=== PATIENT | male | born 1970 | race Caucasian/White ===

== ENCOUNTER 2019-01-19 19:57 | Outpatient (CLI) | payer OTHER | END 2019-01-19 19:58 | disposition critical access hospital (66) | LOC: EMS 19:57 | PROVIDERS: ATTEND Surgery | DX: R07.9 Chest pain, unspecified (principal) | CPT/HCPCS: A0425; A0427 ==

== ENCOUNTER 2019-01-19 20:11 | Emergency (ER) | payer OTHER ==
--- NOTE | 2019-01-19 20:24 | ED Physician Documentation ---
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 Pain is pleuritic, worse with movement LUE, worse with palpation. Given NTG x 3 en route with improvement in pain from 09/28-07/29. also given asa 81mgx4. denies h/o similar symptoms. Flew from [place] few days ago. Review of Systems Constitutional: reports: Fever (not aware of fevers, although medics report they measured 100.4 temp in field). denies: Chills, Sweats Cardiac: reports: Chest pain / pressure. denies: Palpitations, Pedal edema, Calf pain Respiratory: reports: Reviewed and negative GI: reports: Reviewed and negative Skin: reports: Reviewed and negative Musculoskeletal: reports: Joint pain (left shoulder) Neurologic: reports: Headache (subsequent to NTG). denies: Generalized weakness, Focal weakness, Numbness PD PAST MEDICAL HISTORY - Past Medical History Past Medical History: Yes Cardiovascular: Hypertension - Past Surgical History Past Surgical History: Yes General: Other (umbilical hernia) - Allergies Allergies/Adverse Reactions: Allergies Allergy/AdvReac Type Severity Reaction Status Date / Time acetaminophen [From Vicodin] Allergy Unknown Verified 01/19/19 20:19 hydrocodone [From Vicodin] Allergy Unknown Verified 01/19/19 20:19 - Living Situation Living Situation: reports: With family Living Arrangement: reports: At home PD ED PE NORMAL - Vitals Vital signs reviewed: Yes - General General: Alert and oriented X 3, No acute distress, Well developed/nourished - HEENT HEENT: Moist mucous membranes - Neck Neck: Supple, no meningeal sign - Cardiac Cardiac: No murmur, No gallop, No rub - Respiratory Respiratory: No respiratory distress, Clear bilaterally - Abdomen Abdomen: Soft, Non tender - Derm Derm: Normal color, Warm and dry, No rash - Extremities Extremities: No edema - Neuro Neuro: Alert and oriented X 3 PD ED PE EXPANDED - Cardiac Cardiac: Tachy, Regular Rhythm Results - Vitals Vitals: Vital Signs - 24 hr 01/19/19 01/19/19 01/19/19 20:12 20:30 21:00 Temperature 37.1 C Heart Rate 124 H 114 H 110 H Respiratory 24 19 19 Rate Blood Pressure 123/76 121/86 H 136/83 H O2 Saturation 93 95 96 01/19/19 01/19/19 01/19/19 21:30 22:00 22:30 Temperature Heart Rate 111 H 105 H 103 H Respiratory 17 14 19 Rate Blood Pressure 136/84 H 133/82 H 134/78 H O2 Saturation 99 97 99 01/19/19 01/19/19 01/20/19 23:00 23:30 00:04 Temperature Heart Rate 104 H 99 88 Respiratory 18 15 18 Rate Blood Pressure 134/86 H 147/83 H 164/85 H O2 Saturation 96 97 94 01/20/19 01/20/19 00:34 00:57 Temperature Heart Rate 85 86 Respiratory 18 17 Rate Blood Pressure 124/77 124/77 O2 Saturation 93 97 Oxygen O2 Source Room air - EKG (time done) No standard instances Rate: Rate (enter#) (118) Rhythm: Sinus tachycardia [place]: LAD Intervals: Normal [place] QRS: Normal Ischemia: Normal ST segments, Q waves (III, aVF) - Labs Labs: Laboratory Tests 01/19/19 01/19/19 01/19/19 20:25 20:25 20:25 WBC 7.8 RBC 4.46 L Hgb 14.0 Hct 41.2 L MCV 92.4 MCH 31.4 H MCHC 34.0 RDW 13.6 Plt Count 232 MPV 10.2 Neut # (Auto) 3.9 Lymph # (Auto) 3.0 [place] # (Auto) 0.7 Eos # (Auto) 0.2 Baso # (Auto) 0.0 Absolute Nucleated RBC 0.00 Nucleated RBC % 0.0 Sodium 137 Potassium 3.5 Chloride 100 L Carbon Dioxide 27 Anion Gap 10.0 BUN 15 Creatinine 1.4 H Estimated GFR (MDRD) 54 L Glucose 169 H Calcium 8.9 Total Bilirubin 0.5 AST 35 ALT 30 Alkaline Phosphatase 57 Troponin I High Sens 3.5 Total Protein 7.4 Albumin 4.4 Globulin 3.0 Albumin/Globulin Ratio 1.5 Lipase 27 01/19/19 23:30 WBC RBC Hgb Hct MCV MCH MCHC RDW Plt Count MPV Neut # (Auto) Lymph # (Auto) [place] # (Auto) Eos # (Auto) Baso # (Auto) Absolute Nucleated RBC Nucleated RBC % Sodium Potassium Chloride Carbon Dioxide Anion Gap BUN Creatinine Estimated GFR (MDRD) Glucose Calcium Total Bilirubin AST ALT Alkaline Phosphatase Troponin I High Sens 7.9 Total Protein Albumin Globulin Albumin/Globulin Ratio Lipase - Rads (name of study) CT chest w/ contrast Radiology: Prelim report reviewed, See rad report PD MEDICAL DECISION MAKING - ED course Complexity details: reviewed results, re-evaluated patient, considered differential, d/w patient, d/w family Departure - Departure Disposition: 01 Home, Self Care Clinical Impression: Chest pain Condition: Good Instructions: ED Chest Pain Atypical Unkn Cause Discharge Date/Time: 01/20/19 01:07
[2019-01-19] MEDS ORDERED: MORPHINE 2 MG/ML CARPUJECT IVP STA (20:30)
[2019-01-19 20:42] LABS: BASOPHILS % (AUTO) 0.5 %; EOSINOPHILS # (AUTO) 0.2 10^3/uL (0.0-0.7); EOSINOPHILS % (AUTO) 2.2 %; LYMPHOCYTES % (AUTO) 38.2 %; MEAN CORPUSCULAR HEMOGLOBIN 31.4 pg (27.0-31.0); MEAN CORPUSCULAR VOLUME 92.4 fL (80.0-94.0); MEAN PLATELET VOLUME 10.2 fL (7.4-11.4); MONOCYTES # (AUTO) 0.7 10^3/uL (0.0-1.0); MONOCYTES % (AUTO) 8.8 %; NEUTROPHILS # (AUTO) 3.9 10^3/uL (1.5-6.6); PLT - PLATELET COUNT 232 10^3/uL (130-450); RED BLOOD COUNT 4.46 10^6/uL (4.70-6.10); RED CELL DISTRIBUTION WIDTH 13.6 % (12.0-15.0); WHITE BLOOD COUNT 7.8 x10^3/uL (4.8-10.8)
[2019-01-19] MEDS ORDERED: IOVERSOL 320 100 ML VIAL IVP ONE ×2 (20:46→21:19)
[2019-01-19 20:57] LABS: ALBUMIN 4.4 g/dL (3.2-5.5); ALBUMIN/GLOBULIN RATIO 1.5 (1.0-2.2); BILIRUBIN,TOTAL 0.5 mg/dL (0.2-1.0); CALCIUM 8.9 mg/dL (8.5-10.3); CREATININE 1.4 mg/dL (0.6-1.2); TOTAL PROTEIN 7.4 g/dL (6.7-8.2)
--- NOTE | 2019-01-19 21:49 | CT Report ---
Reason: left pleuritic chest pain, tachycardia Procedure Date: 01/19/2019 Accession Number: [id number] / [id number] Procedure: CT - ANGIO CHEST W/WO CPT Code: Final Report FULL RESULT: EXAM: CT ANGIOGRAM CHEST EXAM DATE: 01/19/2019 09:17 PM. CLINICAL HISTORY: Left pleuritic chest pain, tachycardia. COMPARISON: None. TECHNIQUE: Routine helical imaging was performed through the chest in the pulmonary arterial phase. IV Contrast: OPTI 320 80ML. Reconstructions: Coronal 3-D MIP reconstructions.Sagittal and coronal. In accordance with CT protocol optimization, one or more of the following dose reduction techniques were utilized for this exam: automated exposure control, adjustment of mA and/or KV based on patient size, or use of iterative reconstructive technique. FINDINGS: Pulmonary Arteries: Diagnostic quality: Significantly limited due to respiratory motion artifact and late contrast bolus timing. No pulmonary emboli identified through the lobar/proximal segmental level. RV/LV is within normal limits. There is no interventricular septal bowing. There is no reflux of contrast material in the IVC. Lungs/Pleura: Poor inspiratory effort. Elevation and eventration of the right hemidiaphragm. No consolidation, pleural effusion or pneumothorax. Mild dependent atelectasis. Mediastinum: The heart is normal in size. No lymphadenopathy. Thoracic Aorta: Unremarkable. Upper Abdomen: Unremarkable. Other: None. IMPRESSION: No central pulmonary emboli. Limited exam. RADIA
[2019-01-20 00:35] VITALS: BP 124/77
== END 2019-01-20 01:07 | disposition home or self-care (01) ==
LOC: ED 20:11
DX: R07.81 Pleurodynia (principal); M25.512 Pain in left shoulder; R00.0 Tachycardia, unspecified; I10 Essential (primary) hypertension
CPT/HCPCS: 36415; 71275; 80053; 83690; 84484; 85025; 93005; 96374; 99284; Q9967

== ENCOUNTER 2019-01-20 11:22 | Emergency (ER) | payer OTHER ==
[2019-01-20 11:58] LABS: BASOPHILS % (AUTO) 0.2 %; EOSINOPHILS % (AUTO) 0.2 %; HGB - HEMOGLOBIN 14.5 g/dL (14.0-18.0); LYMPHOCYTES # (AUTO) 1.3 10^3/uL (1.5-3.5); LYMPHOCYTES % (AUTO) 16.5 %; MEAN CORPUSCULAR HEMOGLOBIN 31.5 pg (27.0-31.0); MEAN CORPUSCULAR HGB CONC 34.2 g/dL (32.0-36.0); MEAN PLATELET VOLUME 9.8 fL (7.4-11.4); MONOCYTES # (AUTO) 0.5 10^3/uL (0.0-1.0); MONOCYTES % (AUTO) 6.3 %; NEUTROPHILS # (AUTO) 6.2 10^3/uL (1.5-6.6); NEUTROPHILS % (AUTO) 76.6 %; PLT - PLATELET COUNT 223 10^3/uL (130-450); RED BLOOD COUNT 4.61 10^6/uL (4.70-6.10); RED CELL DISTRIBUTION WIDTH 13.7 % (12.0-15.0); WHITE BLOOD COUNT 8.1 x10^3/uL (4.8-10.8)
[2019-01-20 12:17] LABS: ALBUMIN 4.3 g/dL (3.2-5.5); ALBUMIN/GLOBULIN RATIO 1.3 (1.0-2.2); BILIRUBIN,TOTAL 0.8 mg/dL (0.2-1.0); CALCIUM 9.2 mg/dL (8.5-10.3); CREATININE 1.1 mg/dL (0.6-1.2); TOTAL PROTEIN 7.6 g/dL (6.7-8.2)
--- NOTE | 2019-01-20 12:24 | XRAY Report ---
Reason: Chest Pain Procedure Date: 01/20/2019 Accession Number: [id number] / [id number] Procedure: XR - Chest 1 View X-Ray CPT Code: 99924 Final Report FULL RESULT: EXAM: CHEST RADIOGRAPHY EXAM DATE: 01/20/2019 12:01 PM. CLINICAL HISTORY: Chest Pain. COMPARISON: None. TECHNIQUE: 1 view. FINDINGS: Lungs/Pleura: No focal consolidation evident. No pleural effusion. No pneumothorax. Bilateral peribronchial thickening. Mediastinum: Within exam limitations, the cardiomediastinal contour is normal. Other: None. IMPRESSION: Bilateral central airway thickening can be seen in the setting of bronchitis, acute or chronic. Reactive airways disease can have this appearance as well. No focal lung parenchymal consolidation is seen to suggest superimposed pneumonia. RADIA
--- NOTE | 2019-01-20 12:42 | ED Physician Documentation ---
History of Present Illness - Stated complaint Stated Complaint: cp, back pain, headache - Chief complaint Chief Complaint: Cardiac - History obtained from History obtained from: Patient, Family - History of Present Illness Timing: Yesterday Pain level max: 5 Pain level now: 4 - Additonal information Additional information: 48-year-old male complains of a burning sensation to the left chest that wraps around the chest and to the back. Worse with palpation and movement. Nothing makes it better. No fevers. No nausea or vomiting. No history of cardiac issues. Negative troponin here last night. Review of Systems Constitutional: denies: Fever, Chills Nose: denies: Rhinorrhea / runny nose, Congestion Respiratory: denies: Dyspnea, Cough, Wheezing GI: denies: Vomiting PD PAST MEDICAL HISTORY - Past Medical History Past Medical History: Yes Cardiovascular: Hypertension - Past Surgical History Past Surgical History: Yes General: Other - Present Medications Home Medications: Ambulatory Orders Medication Instructions Recorded Confirmed Valacyclovir HCl [Valacyclovir] 1,000 mg PO TID #21 tablet 01/20/19 predniSONE [Prednisone] 40 mg PO DAILY #14 tablet 01/20/19 - Allergies Allergies/Adverse Reactions: Allergies Allergy/AdvReac Type Severity Reaction Status Date / Time acetaminophen [From Vicodin] Allergy Unknown Verified 01/20/19 11:34 hydrocodone [From Vicodin] Allergy Unknown Verified 01/20/19 11:34 - Social History Does the pt smoke?: No Smoking Status: Never smoker Does the pt drink ETOH?: Yes Does the pt have substance abuse?: No - Immunizations Immunizations are current?: Yes - POLST Patient has POLST: No PD ED PE NORMAL - Vitals Vital signs reviewed: Yes - General General: Alert and oriented X 3, No acute distress - HEENT HEENT: Moist mucous membranes - Neck Neck: Supple, no meningeal sign - Cardiac Cardiac: RRR, No murmur, Strong equal pulses - Respiratory Respiratory: No respiratory distress, Clear bilaterally - Abdomen Abdomen: Soft, Non tender, Non distended - Derm Derm: Warm and dry, No rash, Other (Tenderness to light touch around the dermatome of approximately T6. Wraps around the chest. No tenderness elsewhere. No visible rash) - Extremities Extremities: No edema, No calf tenderness / cord - Neuro Neuro: Alert and oriented X 3 Results - Vitals Vitals: Oxygen O2 Source Room air - EKG (time done) 1128 Rate: Rate (enter#) (91) Rhythm: NSR [place]: Normal Intervals: Normal [place] QRS: Normal Ischemia: Normal ST segments, Q waves Compare to prior EKG: Unchanged from prior EKG - Labs Labs: Laboratory Tests 01/20/19 01/20/19 01/20/19 11:55 11:55 11:55 WBC 8.1 RBC 4.61 L Hgb 14.5 Hct 42.4 MCV 92.0 MCH 31.5 H MCHC 34.2 RDW 13.7 Plt Count 223 MPV 9.8 Neut # (Auto) 6.2 Lymph # (Auto) 1.3 L [place] # (Auto) 0.5 Eos # (Auto) 0.0 Baso # (Auto) 0.0 Absolute Nucleated RBC 0.00 Nucleated RBC % 0.0 Sodium 139 Potassium 3.9 Chloride 104 Carbon Dioxide 28 Anion Gap 7.0 BUN 12 Creatinine 1.1 Estimated GFR (MDRD) 71 L Glucose 150 H Calcium 9.2 Total Bilirubin 0.8 AST 31 ALT 31 Alkaline Phosphatase 54 Troponin I High Sens 4.0 Total Protein 7.6 Albumin 4.3 Globulin 3.3 Albumin/Globulin Ratio 1.3 Lipase 30 - Rads (name of study) cxr Radiology: Prelim report reviewed, EMP read contemporaneously, See rad report (Bilateral central airway thickening can be seen in setting of bronchitis, greater chronic. Reactive airway disease can have this appearance as well. No focal lung parenchymal consolidation is seen to suggest a pneumonia) PD MEDICAL DECISION MAKING - ED course Complexity details: reviewed old records, reviewed results, re-evaluated patient, considered differential (No ST elevation AR, no aortic dissection, no PE, no tension pneumothorax, no aortic aneurysm), d/w patient ED course: Patient has an exam that is most consistent with shingles. We will treat him for this. No evidence of acute coronary syndrome. No evidence of PE. No evidence of pneumothorax. Patient counseled regarding signs and symptoms for which I believe and urgent re-evaluation would be necessary. Patient with good understanding of and agreement to plan and is comfortable going home at this time This document was made in part using voice recognition software. While efforts are made to proofread this document, sound alike and grammatical errors may occur. Departure - Departure Disposition: Home, Self Care Clinical Impression: Chest pain Qualifiers: Chest pain type: unspecified Qualified Code(s): R07.9 - Chest pain, unspecified Shingles Qualifiers: Herpes zoster complications: without complications Qualified Code(s): B02.9 - Zoster without complications Condition: Good Instructions: ED Chest Pain NonCardiac, ED Shingles Follow-Up: your,doctor in 1 week [Other] Prescriptions: predniSONE [Prednisone] 40 mg PO DAILY #14 tablet Valacyclovir HCl [Valacyclovir] 1,000 mg PO TID #21 tablet Comments: Return if you worsen. Follow-up with your doctor for further care. Your heart tests are normal today. This is likely shingles. You will likely develop a rash over the next day or 2. Discharge Date/Time: 01/20/19 12:53
[2019-01-20 12:46] VITALS: BP 124/77
== END 2019-01-20 12:53 | disposition home or self-care (01) ==
LOC: ED 11:22
DX: R07.81 Pleurodynia (principal); B02.9 Zoster without complications; I10 Essential (primary) hypertension; M25.512 Pain in left shoulder; R00.0 Tachycardia, unspecified
CPT/HCPCS: 36415; 71045; 80053; 83690; 84484; 85025; 93005; 99284

== ENCOUNTER 2019-01-23 19:35 | Emergency (ER) | payer OTHER ==
[2019-01-23 20:06] LABS: BASOPHILS % (AUTO) 0.3 %; EOSINOPHILS % (AUTO) 0.1 %; LYMPHOCYTES # (AUTO) 2.6 10^3/uL (1.5-3.5); LYMPHOCYTES % (AUTO) 19.5 %; MEAN CORPUSCULAR HEMOGLOBIN 31.1 pg (27.0-31.0); MEAN CORPUSCULAR HGB CONC 33.9 g/dL (32.0-36.0); MEAN CORPUSCULAR VOLUME 91.7 fL (80.0-94.0); MEAN PLATELET VOLUME 9.9 fL (7.4-11.4); MONOCYTES # (AUTO) 1.1 10^3/uL (0.0-1.0); MONOCYTES % (AUTO) 8.3 %; NEUTROPHILS # (AUTO) 9.3 10^3/uL (1.5-6.6); NEUTROPHILS % (AUTO) 71.3 %; PLT - PLATELET COUNT 255 10^3/uL (130-450); RED BLOOD COUNT 4.83 10^6/uL (4.70-6.10); RED CELL DISTRIBUTION WIDTH 13.4 % (12.0-15.0); WHITE BLOOD COUNT 13.1 x10^3/uL (4.8-10.8)
--- NOTE | 2019-01-23 20:17 | ED Physician Documentation ---
PD HPI CHEST PAIN - Stated complaint Stated Complaint: HBP - Chief complaint Chief Complaint: Cardiac - History obtained from History obtained from: Patient - History of Present Illness Timing - onset: Enter time (17:00), Today Timing - onset during: Light activity Timing - details: Abrupt onset, Intermittant Pain level now: 3 Quality: Pain (burning) Location: Left chest Radiation: Other (left lateral upper chest) Improved by: Nothing Worsened by: Other (no exacerbating factors) Associated symptoms: Shortness of air Similar symptoms before: No diagnosis Recently seen: Emergency Dept - Additional information Additional information: T+R from this ED 01/19 and again 01/20 for same symptoms. w/u on both visits were unremarkable and non-diagnostic. Return due to recurrence of left chest burning since 5 PM today. Has been taking the medications prescribed on previous visit which were targeted to suspected shingles. He also says left face and forehead "tingling". Review of Systems Constitutional: reports: Reviewed and negative Cardiac: reports: Chest pain / pressure. denies: Palpitations, Pedal edema, Calf pain Respiratory: reports: Dyspnea. denies: Cough, Wheezing GI: reports: Reviewed and negative Skin: reports: Reviewed and negative Musculoskeletal: reports: Reviewed and negative Neurologic: reports: Headache (intermittent headaches for which he was seen at an urgent care center 3 days ago; per patient, w/u included CTH and results were unremarkable) PD PAST MEDICAL HISTORY - Past Medical History Cardiovascular: Hypertension - Past Surgical History Past Surgical History: Yes General: Other - Present Medications Home Medications: Ambulatory Orders Medication Instructions Recorded Confirmed Valacyclovir HCl [Valacyclovir] 1,000 mg PO TID #21 tablet 01/20/19 01/23/19 predniSONE [Prednisone] 40 mg PO DAILY #14 tablet 01/20/19 01/23/19 Atenolol 50 mg PO DAILY 01/23/19 01/23/19 amLODIPine [Norvasc] 5 mg PO DAILY #20 tablet 01/23/19 - Allergies Allergies/Adverse Reactions: Allergies Allergy/AdvReac Type Severity Reaction Status Date / Time acetaminophen [From Vicodin] Allergy Unknown Verified 01/23/19 19:42 hydrocodone [From Vicodin] Allergy Unknown Verified 01/23/19 19:42 - Social History Does the pt smoke?: No Smoking Status: Never smoker Does the pt drink ETOH?: Yes Does the pt have substance abuse?: No - Immunizations Immunizations are current?: Yes - POLST Patient has POLST: No PD ED PE NORMAL - Vitals Vital signs reviewed: Yes - General General: Alert and oriented X 3, No acute distress, Well developed/nourished - HEENT HEENT: Moist mucous membranes - Neck Neck: Supple, no meningeal sign - Cardiac Cardiac: RRR, No murmur, No gallop, No rub - Respiratory Respiratory: No respiratory distress, Clear bilaterally - Abdomen Abdomen: Soft, Non tender - Derm Derm: Normal color, Warm and dry, No rash - Extremities Extremities: No edema Results - Vitals Vitals: Vital Signs - 24 hr 01/23/19 23:05 Heart Rate 74 Respiratory 19 Rate Blood Pressure 147/95 H O2 Saturation 95 Oxygen O2 Source Room air - EKG (time done) No standard instances Rate: Rate (enter#) (80) Rhythm: NSR [place]: Normal Intervals: Normal [place] QRS: Normal Ischemia: Normal ST segments, Q waves (III, aVF) - Labs Labs: Laboratory Tests 01/23/19 01/23/19 01/23/19 19:46 19:59 20:45 WBC 13.1 H RBC 4.83 Hgb 15.0 Hct 44.3 MCV 91.7 MCH 31.1 H MCHC 33.9 RDW 13.4 Plt Count 255 MPV 9.9 Neut # (Auto) 9.3 H Lymph # (Auto) 2.6 [place] # (Auto) 1.1 H Eos # (Auto) 0.0 Baso # (Auto) 0.0 Absolute Nucleated RBC 0.00 Nucleated RBC % 0.0 Sodium 138 Potassium 3.6 Chloride 99 L Carbon Dioxide 31 Anion Gap 8.0 BUN 15 Creatinine 1.3 H Estimated GFR (MDRD) 58 L Glucose 114 H Calcium 8.8 Total Bilirubin 0.2 AST 23 ALT 29 Alkaline Phosphatase 53 Troponin I High Sens 3.8 Total Protein 7.6 Albumin 4.1 Globulin 3.5 Albumin/Globulin Ratio 1.2 Lipase 32 - Rads (name of study) chest xray Radiology: Prelim report reviewed, See rad report PD MEDICAL DECISION MAKING - ED course Complexity details: reviewed old records, reviewed results, re-evaluated patient, considered differential, d/w patient, d/w family Departure - Departure Disposition: 01 Home, Self Care Clinical Impression: Chest pain Condition: Good Instructions: ED Chest Pain Atypical Unkn Cause, ED Hypertension Conf Out Of Control Prescriptions: amLODIPine [Norvasc] 5 mg PO DAILY #20 tablet Discharge Date/Time: 01/23/19 23:14
[2019-01-23 20:18] LABS: ALBUMIN 4.1 g/dL (3.2-5.5); ALBUMIN/GLOBULIN RATIO 1.2 (1.0-2.2); BILIRUBIN,TOTAL 0.2 mg/dL (0.2-1.0); CALCIUM 8.8 mg/dL (8.5-10.3); CREATININE 1.3 mg/dL (0.6-1.2); TOTAL PROTEIN 7.6 g/dL (6.7-8.2)
--- NOTE | 2019-01-23 20:30 | XRAY Report ---
Reason: chest pain since 1800 Procedure Date: 01/23/2019 Accession Number: [id number] / [id number] Procedure: XR - Chest 1 View X-Ray CPT Code: 27180 Final Report FULL RESULT: EXAM: CHEST RADIOGRAPHY EXAM DATE: 01/23/2019 08:05 PM. CLINICAL HISTORY: Chest pain since 6 pm. COMPARISON: CHEST 1 VIEW 01/20/2019 12:00 PM. TECHNIQUE: 1 view. FINDINGS: Cardiac leads overlie the chest. Heart size is normal. Calcified plaque in the thoracic aorta. No consolidation, pleural effusion, or pneumothorax. Decrease, although residual, mildly increased peribronchial markings bilaterally. IMPRESSION: No acute cardiopulmonary findings. Redemonstration of possible bronchitis or other central airways disease. No evidence of focal pneumonia. RADIA
[2019-01-23] MEDS ORDERED: amLODIPine 5 MG TABLET PO STA (22:13)
[2019-01-23 23:06] VITALS: BP 147/95
== END 2019-01-23 23:14 | disposition home or self-care (01) ==
LOC: ED 19:35
DX: R07.89 Other chest pain (principal); I10 Essential (primary) hypertension
CPT/HCPCS: 36415; 71045; 80053; 83690; 84484; 85025; 93005; 99284; A9270

== ENCOUNTER 2019-01-26 12:35 | Emergency (ER) | payer OTHER ==
[2019-01-26 13:27] LABS: BASOPHILS % (AUTO) 0.3 %; EOSINOPHILS # (AUTO) 0.1 10^3/uL (0.0-0.7); EOSINOPHILS % (AUTO) 0.5 %; HGB - HEMOGLOBIN 15.8 g/dL (14.0-18.0); LYMPHOCYTES # (AUTO) 1.4 10^3/uL (1.5-3.5); LYMPHOCYTES % (AUTO) 14.3 %; MEAN CORPUSCULAR HEMOGLOBIN 31.2 pg (27.0-31.0); MEAN CORPUSCULAR HGB CONC 34.3 g/dL (32.0-36.0); MEAN CORPUSCULAR VOLUME 91.1 fL (80.0-94.0); MONOCYTES # (AUTO) 0.6 10^3/uL (0.0-1.0); MONOCYTES % (AUTO) 6.4 %; NEUTROPHILS # (AUTO) 7.5 10^3/uL (1.5-6.6); NEUTROPHILS % (AUTO) 78.1 %; PLT - PLATELET COUNT 266 10^3/uL (130-450); RED BLOOD COUNT 5.06 10^6/uL (4.70-6.10); RED CELL DISTRIBUTION WIDTH 13.6 % (12.0-15.0); WHITE BLOOD COUNT 9.6 x10^3/uL (4.8-10.8)
[2019-01-26 13:38] LABS: ALBUMIN 4.3 g/dL (3.2-5.5); ALBUMIN/GLOBULIN RATIO 1.3 (1.0-2.2); BILIRUBIN,TOTAL 0.6 mg/dL (0.2-1.0); CALCIUM 8.9 mg/dL (8.5-10.3); TOTAL PROTEIN 7.7 g/dL (6.7-8.2)
--- NOTE | 2019-01-26 13:54 | ED Physician Documentation ---
PD HPI CHEST PAIN - Stated complaint Stated Complaint: DIZZINESS - Chief complaint Chief Complaint: Cardiac - History obtained from History obtained from: Patient - History of Present Illness Timing - onset: Other (48-year-old gentleman with history of hypertension who is visiting from [place]. He is had a lot of problems up here, it started on Halloween evening. After using a new formulation of CBD and going through a smog display he started to have some dizzy episodes. Since then he said dizzy episodes with occasional chest pain. There was happened in the same place, when he sitting near the front door in his daughter's house. He is been seen here 3 times, negative work-ups each time, also was seen at [facility] twice and had a CT of his head and a stress test which were reportedly normal. He had another episode of dizziness today, no chest pain today. He is been on atenolol long- term for hypertension, amlodipine was started a few days ago which was neither helpful nor did it make his symptoms worse. He denies pedal edema.) Review of Systems Constitutional: reports: Fatigue. denies: Fever, Chills Cardiac: denies: Chest pain / pressure, Palpitations Respiratory: denies: Dyspnea, Cough PD PAST MEDICAL HISTORY - Past Medical History Cardiovascular: Hypertension Respiratory: Sleep apnea Neuro: None Endocrine/Autoimmune: None GI: None, Chronic constipation, Hemorrhoids : None HEENT: None Psych: None Musculoskeletal: None Derm: None - Past Surgical History Past Surgical History: Yes General: Other Ortho: Other - Present Medications Home Medications: Ambulatory Orders Medication Instructions Recorded Confirmed Atenolol 50 mg PO DAILY 01/23/19 01/23/19 amLODIPine [Norvasc] 5 mg PO DAILY #20 tablet 01/23/19 Acetaminophen with Codeine 0 mg 01/26/19 [Tylenol with Codeine #3 Tablet] - Allergies Allergies/Adverse Reactions: Allergies Allergy/AdvReac Type Severity Reaction Status Date / Time acetaminophen [From Vicodin] Allergy Unknown Verified 01/23/19 19:42 hydrocodone [From Vicodin] Allergy Unknown Verified 01/23/19 19:42 - Social History Does the pt smoke?: No Smoking Status: Never smoker Does the pt drink ETOH?: Yes Does the pt have substance abuse?: No - Immunizations Immunizations are current?: Yes - POLST Patient has POLST: No PD ED PE NORMAL - Vitals Vital signs reviewed: Yes - General General: Alert and oriented X 3, No acute distress - HEENT HEENT: PERRL, EOMI - Neck Neck: Supple, no meningeal sign, No bony TTP - Cardiac Cardiac: RRR, No murmur - Respiratory Respiratory: No respiratory distress, Clear bilaterally - Abdomen Abdomen: Non tender - Derm Derm: No rash - Extremities Extremities: No edema, No calf tenderness / cord - Neuro Neuro: Normal speech Results - Vitals Vitals: Vital Signs - 24 hr 01/26/19 01/26/19 01/26/19 12:39 13:45 14:40 Temperature 37 C Heart Rate 85 77 72 Respiratory 18 20 20 Rate Blood Pressure 135/92 H 150/100 H 130/88 H O2 Saturation 97 97 97 Oxygen O2 Source Room air - EKG (time done) 1253 Rate: Rate (enter#) (86) Rhythm: NSR [place]: Normal Intervals: Normal [place] QRS: Normal Ischemia: No: ST elevation c/w ischemia Compare to prior EKG: Unchanged from prior EKG (from 01/23/19) Computer interpretation: Agree with computer - Labs Labs: Laboratory Tests 01/26/19 01/26/19 01/26/19 13:20 13:20 13:20 WBC 9.6 RBC 5.06 Hgb 15.8 Hct 46.1 MCV 91.1 MCH 31.2 H MCHC 34.3 RDW 13.6 Plt Count 266 MPV 10.0 Neut # (Auto) 7.5 H Lymph # (Auto) 1.4 L [place] # (Auto) 0.6 Eos # (Auto) 0.1 Baso # (Auto) 0.0 Absolute Nucleated RBC 0.00 Nucleated RBC % 0.0 VBG pH VBG pCO2 VBG pO2 VBG HCO3 VBG Total CO2 VBG O2 Saturation VBG Base Excess VBG Total Hgb VBG Oxyhemoglobin VBG Carboxyhemoglobin VBG Methemoglobin Sodium 135 Potassium 3.7 Chloride 102 Carbon Dioxide 24 Anion Gap 9.0 BUN 16 Creatinine 1.0 Estimated GFR (MDRD) 79 L Glucose 140 H Calcium 8.9 Total Bilirubin 0.6 AST 24 ALT 33 Alkaline Phosphatase 56 Troponin I High Sens 2.8 Total Protein 7.7 Albumin 4.3 Globulin 3.4 Albumin/Globulin Ratio 1.3 Lipase 34 Urine Opiates Screen Ur Oxycodone Screen Urine Methadone Screen Ur Propoxyphene Screen Ur Barbiturates Screen Ur Tricyclics Screen Ur Phencyclidine Scrn Ur Amphetamine Screen U Methamphetamines Scrn U Benzodiazepines Scrn Urine Cocaine Screen U Cannabinoids Screen 01/26/19 01/26/19 01/26/19 14:04 14:04 14:22 WBC RBC Hgb Hct MCV MCH MCHC RDW Plt Count MPV Neut # (Auto) Lymph # (Auto) [place] # (Auto) Eos # (Auto) Baso # (Auto) Absolute Nucleated RBC Nucleated RBC % VBG pH 7.366 VBG pCO2 40.9 L VBG pO2 35.7 VBG HCO3 22.9 L VBG Total CO2 24.2 VBG O2 Saturation 69.9 VBG Base Excess -2.3 L VBG Total Hgb 16.3 VBG Oxyhemoglobin 69 L VBG Carboxyhemoglobin 0.9 VBG Methemoglobin 0.1 Sodium Potassium Chloride Carbon Dioxide Anion Gap BUN Creatinine Estimated GFR (MDRD) Glucose Calcium Total Bilirubin AST ALT Alkaline Phosphatase Troponin I High Sens Total Protein Albumin Globulin Albumin/Globulin Ratio Lipase Urine Opiates Screen POSITIVE H Ur Oxycodone Screen NEGATIVE Urine Methadone Screen NEGATIVE Ur Propoxyphene Screen NEGATIVE Ur Barbiturates Screen NEGATIVE Ur Tricyclics Screen NEGATIVE Ur Phencyclidine Scrn NEGATIVE Ur Amphetamine Screen NEGATIVE U Methamphetamines Scrn NEGATIVE U Benzodiazepines Scrn POSITIVE H Urine Cocaine Screen NEGATIVE U Cannabinoids Screen NEGATIVE PD MEDICAL DECISION MAKING - ED course ED course: This is a 48-year-old gentleman with nonspecific dizziness, not vertigo. He has a negative exam here, is been thoroughly worked up this week and his diagnostics continue to be negative. Departure - Departure Disposition: 01 Home, Self Care Clinical Impression: Dizziness Hypertension Qualifiers: Hypertension type: essential hypertension Qualified Code(s): I10 - Essential (primary) hypertension Condition: Good Record reviewed to determine appropriate education?: Yes Instructions: ED Dizziness UKO Comments: Your work-up is again negative, follow-up with your doctor on return home. Return for new or worsening symptoms. Discharge Date/Time: 01/26/19 14:45
[2019-01-26 14:09] LABS: VBG BASE EXCESS -2.3 mmol/L (-2 - +2); VBG PCO2 40.9 mmHg (41-51); VBG PH 7.366 (7.31-7.41); VBG PO2 35.7 mmHg (25-47); VBG TOTAL CO2 24.2 mmol/L (24-29)
[2019-01-26 14:41] VITALS: BP 130/88
[2019-01-26 15:00] LABS: MUDS CUTOFF CONCENTRATIONS CUTOFF CONC BELOW:
[2019-01-26 15:30] LABS: AMPHETAMINE SCREEN,URINE NEGATIVE (NEGATIVE); BENZODIAZEPINES SCREEN, URINE POSITIVE (NEGATIVE); COCAINE SCREEN URINE NEGATIVE (NEGATIVE); METHADONE SCREEN, URINE NEGATIVE (NEGATIVE); METHAMPHETAMINES SCREEN, URINE NEGATIVE (NEGATIVE); OPIATE SCREEN, URINE POSITIVE (NEGATIVE); OXYCODONE SCREEN, URINE NEGATIVE (NEGATIVE); PROPOXYPHENE SCREEN, URINE NEGATIVE (NEGATIVE); TRICYCLIC ANTIDEPRESSANT,URINE NEGATIVE (NEGATIVE)
== END 2019-01-26 14:45 | disposition home or self-care (01) ==
LOC: ED 12:35
DX: R42 Dizziness and giddiness (principal); I10 Essential (primary) hypertension
CPT/HCPCS: 36415; 80053; 80306; 82375; 82803; 83690; 84484; 85025; 93005; 99283; 99284